=== PATIENT | male | born 1970 | race Caucasian/White ===

== ENCOUNTER 2018-11-14 20:49 | Emergency (ER) | payer MEDICAID, OTHER ==
[~2018-11-14] VITALS: Ht 162.6 cm; Wt 91.9 kg
[2018-11-14 21:33] VITALS: Ht 162.6 cm; Wt 91.9 kg
[2018-11-14] MEDS ORDERED: ALBUTEROL 0.5% (NEB) 2.5 MG/0.5 ML AMP INH STA (22:14)
[2018-11-14] MEDS ORDERED: DEXAMETHASONE 10 MG/ML 1 ML INJ IM STA (22:14)
[2018-11-14] MEDS ORDERED: IPRATROPIUM (NEB) 0.5 MG/2.5 ML AMP INH STA (22:14)
[2018-11-14] MEDS ORDERED: BENZONATATE 100 MG CAP PO ONE (22:30)
[2018-11-14] MEDS ORDERED: MED4DP PO (23:28)
[2018-11-14] MEDS ORDERED: BENZ200C68 PO (23:28)
[2018-11-14] MEDS ORDERED: ALBU18HF INHALATION (23:28)
--- NOTE | 2018-11-14 23:36 | ERD ---
ER Documentation Chief Complaint Chief Complaint non-productive cough/sore throat/headache x1week HPI 47-year-old male with past medical history of pneumonia presenting to the emergency department complaining of intermittent cough for the past 1 week. Symptoms are worse at night and are moderate to severe. Cough is productive of phlegm. No fevers, chills, sore throat, or other symptoms reported at this time. ROS All systems reviewed and are negative except as per history of present illness. Medications Home Meds Active Scripts Benzonatate* (Benzonatate*) 200 Mg Capsule, 200 MG PO TID PRN for COUGH, #15 CAP Prov:TANVIR MUÑIZ PA-C 11/14/18 Methylprednisolone* (Medrol* DOSE PACK) 4 Mg/Dose-Pack Tab.ds.pk, 4 MG PO . DIRECTED, #1 PACKET Prov:TANVIR MUÑIZ PA-C 11/14/18 Albuterol Sulfate* (Ventolin HFA*) 18 Gm Hfa.aer.ad, 2 PUFF INHALATION Q4H, #1 INHALER Prov:TANVIR MUÑIZ PA-C 11/14/18 Allergies Allergies: Coded Allergies: No Known Allergy (Unverified , 11/14/18) PMhx/Soc Medical and Surgical Hx: pt denies Medical Hx History of Surgery: Yes (HERNIA REPAIR) Hx Alcohol Use: No Hx Substance Use: No Hx Tobacco Use: No Smoking Status: Never smoker FmHx Family History: No diabetes Physical Exam Vitals Vital Signs Date Temp Pulse Resp B/P (MAP) Pulse Ox O2 O2 Flow FiO2 Time Delivery Rate 11/14/18 10 22:45 11/14/18 77 22 98 21 22:27 11/14/18 98.5 79 26 148/68 96 21:33 (94) Physical Exam Const: No acute distress Head: Atraumatic Eyes: Normal Conjunctiva ENT: Normal External Ears, Nose and Mouth. Neck: Full range of motion. No meningismus. Resp: Actively coughing on examination. Mild inspiratory wheezing noted to bilateral upper lung soto. No rhonchi. No crackles. Cardio: Regular rate and rhythm, no murmurs Skin: No petechiae or rashes Back: No midline or flank tenderness Ext: No cyanosis, or edema Neur: Awake and alert Psych: Normal Mood and Affect Results 24 hrs Current Medications Medications Dose Sig/Whitney Start Time Status Last (Trade) Ordered Route PRN Stop Time Admin Dose Reason Admin Albuterol 10 mg ONCE STAT 11/14/18 DC 11/14/18 (Proventil INH 22:14 22:27 0.5% (Neb)) 11/14/18 22:17 Ipratropium 1 mg ONCE STAT 11/14/18 DC 11/14/18 [place] INH 22:14 22:27 (Atrovent 11/14/18 22:17 0.02% (Neb)) 10 mg ONCE STAT 11/14/18 DC 11/14/18 Dexamethasone IM 22:14 22:24 (Decadron) 11/14/18 22:17 Benzonatate 200 mg ONCE ONCE 11/14/18 DC 11/14/18 (Tessalon) PO 22:30 22:28 11/14/18 22:31 [place] [id number] Radiology Main Line: [phone] DIAGNOSTIC IMAGING REPORT Patient: GENA ARCHER : 1970 Age: 47 Sex: M MR #: [id number] DOS: 11/14/18 2214 Ordering MD: TANVIR MUÑIZ PA-C Location: [facility] Room/Bed: PROCEDURE: XR Chest. CLINICAL INDICATION: Asthma exacerbation TECHNIQUE: Single frontal view of the chest COMPARISON: None FINDINGS: No focal pulmonary consolidation. The heart and mediastinum are within normal limits. There is no pleural effusion or pneumothorax. Bones and soft tissues are unremarkable. IMPRESSION: No acute cardiac or pulmonary findings. RPTAT:HCLE Physician Bryanna Date Time Electronically viewed and signed by Physician Bryanna on 11/14/2018 23:25 cE/ CC: TANVIR MUÑIZ PA-C [phone] Procedures/MDM 47-year-old male presenting to the emergency department complaining of productive cough. Patient was actively coughing on exam and had some mild inspiratory wheezing to bilateral upper lung soto. The patient was administered IM Decadron and albuterol/ipratropium breathing treatment. Patient was significantly improved on reevaluation. There was no active coughing on repeat examination. Chest x-ray negative for any acute findings. The full report interpreted by the radiologist may be viewed above. He was stable and appropriate for further outpatient management. He will be given prescriptions for benzonatate, Medrol Dosepak, Ventolin. Patient's respiratory status has stabilized while in the department and is appropriate for outpatient work up. Exam and work up not consistent w/ impending respiratory failure or cardiovascular collapse. No evidence of life-threatening pathology at time of discharge. Pt/family in agreement with discharge plan/diagnosis. Pt/family advised to return immediately with any new or worsening symptoms. Follow-up with primary care physician within the next 1-2 days. Patient's blood pressure was elevated (>120/80) but appears stable without evidence of hypertension emergency or urgency. The patient is to follow-up and pursue outpatient monitoring and therapy with their primary care physician within 1 week and return immediately if they have any new, worsening, or concerning symptoms. Disclaimer: Inadvertent spelling and grammatical errors are likely due to EHR/dictation software use and do not reflect on the overall quality of patient care. Also, please note that the electronic time recorded on this note does not necessarily reflect the actual time of the patient encounter. Departure Diagnosis: Primary Impression: Cough Condition: Fair Patient Instructions: Preventing Common Respiratory Infections, Cough, Chronic, Uncertain Cause, (Adult) Referrals: [facility] () Usted se silverman hecho un examen mdico de control que le indica que no est en rajinder condicin que requiera tratamiento urgente en el Departamento de Emergencia. Un estudio ms profundo y el tratamiento de dubose condicin pueden esperar sin ningn riesgo hasta que usted sea atendida/o en el consultorio de dubose mdico o rajinder clnica. Es responsabilidad suya arreglar rajinder avinash para el seguimiento del zane. MANEJO DE CONDICIONES NO URGENTES EN EL FUTURO 1) Si usted tiene un mdico de atencin primaria: Usted debera llamar a dubose mdico de atencin primaria antes de venir al departamento de emergencia. Despus de las horas de consultorio, dubose doctor o dubose asociado/a est disponible por telfono. El mdico o enfermero de paula en el servicio telefnico puede asesorarle por flo medio para atender el problema, o zane contrario se puede programar rajinder avinash. 2) Si usted no tiene un mdico de atencin primaria: Llame al mdico o clnica de referencia que aparece abajo abimbola las horas de consultorio para hacer rajinder avinash para que le vean. CLINICAS: [facility] [phone] [facility] [phone] [facility] [phone] [place] [address] [phone] [place] [id number] [phone] [facility] [phone] Additional Instructions: Llame al doctor MAANA y sultana rajinder AVINASH PARA DENTRO DE 1-2 MILLER.Dgale a la secretaria que nosotros le instruimos hacer esta avinash.Avise o llame si dubose condicin se empeora antes de la avinash. Regresa aqui si peor o no mejor. TANVIR MUÑIZ PA-C November 14, 2018 23:36
[2018-11-14 23:45] VITALS: BP 141/65; PULSE 84; RESP 16
== END 2018-11-14 23:45 | disposition home or self-care (01) ==
LOC: FTE 20:49
DX: R05 Cough (principal)
CPT/HCPCS: 71045; 94644; 96372; J1100; Z7502; Z7610